=== PATIENT | male | born 1955 | race Two or more races ===

== ENCOUNTER 2016-09-20 09:43 | Day surgery (SDC) | payer BC ==
[~2016-09-20] VITALS: Ht 182.9 cm; Wt 92.1 kg
[2016-09-20] VITALS (7 sets, daily range): BP systolic 125–147; BP diastolic 83–96
[2016-09-20] MEDS ORDERED: NKM (10:18)
[2016-09-20] MEDS ORDERED: LR 1000ml ONE (10:40)
[2016-09-20] MEDS ORDERED: Lidocaine 1% MPF 10mg/ml 5ml ONE (10:40)
[2016-09-20] MEDS ORDERED: Propofol 10mg/ml 20ml IV ONE (10:40)
--- NOTE | 2016-09-20 10:42 | Short Stay Surgery H&P ---
History of Present Illness History of Present Illness Chief Complaint see attached H&P HPI Chaparro Garcia is a 61 year old male who was admitted on for Colon Polyps Patient History Allergies: Coded Allergies: No Known Allergies (Unverified , 09/20/16) PAST MEDICAL HISTORY: Past Surgeries: Social History: Medication History Scheduled No Known Medications* (NKM - No Known Medications*), 0 ., (Reported) Physical Exam Vital Signs Last Vital Signs Date Time Temp Pulse Resp B/P Pulse Ox O2 Delivery O2 Flow Rate FiO2 09/20/16 10:11 98.5 79 18 147/92 97 Room Air Plan Attestation Are the patient's medical conditions optimized for surgery? JOHNY ZHANG Sep 20, 2016 10:42
--- NOTE | 2016-09-20 10:42 | Pre-Procedure Note/Attestation ---
Pre-Procedure Note/Attestation Complete Prior to Procedure Planned Procedure: not applicable Procedure Narrative: colonoscopy Indications for Procedure Pre-Operative Diagnosis: h/o colon polyps Attestation I attest that I discussed the nature of the procedure; its benefits; risks and complications; and alternatives (and the risks and benefits of such alternatives ), prior to the procedure, with the patient (or the patient's legal nutrition representative). I attest that, if there was a reasonable possibility of needing a blood transfusion, the patient (or the patient's legal nutrition representative) was given the [facility] standardized written summary, pursuant to the [place] Blood Safety Act ([place] Health and Safety Code # 1645, as amended). I attest that I re-evaluated the patient just prior to the surgery and that there has been no change in the patient's H&P, except as documented below: JOHNY ZHANG Sep 20, 2016 10:41
--- NOTE | 2016-09-20 11:15 | Immediate Post-Op Evaluation ---
Immediate Post-Op Evalulation Immediate Post-Op Evalulation Procedure: colonoscopy Date of Evaluation: Sep 20, 2016 Time of Evaluation: 11:14 IV Fluids: 500 Blood Pressure Systolic: 126 Blood Pressure Diastolic: 96 Pulse Rate: 77 Respiratory Rate: 14 O2 Sat by Pulse Oximetry: 100 Temperature (Fahrenheit): 97.5 Nausea: No Vomiting: No Patient Status: awake, reacts, patent Hydration Status: adequate Drug: none JASON BLAKE CRNA Sep 20, 2016 11:15
--- NOTE | 2016-09-20 11:17 | Anethesia Preoperative Eval ---
Anesthesia Pre-op PMH/ROS General Date of Evaluation: Sep 20, 2016 Time of Evaluation: 10:40 Anesthesiologist: markus ASA Score: ASA 2 Mallampati Score Class I : Soft palate, uvula, fauces, pillars visible Class II: Soft palate, uvula, fauces visible Class III: Soft palate, base of uvula visible Class IV: Only hard plate visible Mallampati Classification: Class II Surgeon: joaquin Diagnosis: screening Surgical Procedure: Colonoscopy Anesthesia History: none Family History: no anesthesia problems Allergies: Coded Allergies: No Known Allergies (Unverified , 09/20/16) Past Medical History Cardiovascular: Denies: CAD, HTN, [place], arrhythmia, other, valve dz Pulmonary: Denies: COPD, PRIYANKA, asthma, other Gastrointestinal/Genitourinary: Denies: CRI, ESRD, GERD, other Neurologic/Psychiatric: Denies: CVA, TIA, dementia, depression/anxiety, other Endocrine: Denies: DM, hypothyroidism, other, steroids HEENT: Denies: [place] (L), [place] (R), cataract (L), cataract (R), glaucoma, other Hematology/Immune: Denies: DVT, anemia, bleeding disorder, other Musculoskeletal/Integumentary: Denies: DDD, DJD, OA, RA, edema, other PMH Narrative: hx colon ca Anesthesia Pre-op Phys. Exam Physician Exam Last Vital Signs Date Time Temp Pulse Resp B/P Pulse Ox O2 Delivery O2 Flow Rate FiO2 09/20/16 10:11 98.5 79 18 147/92 97 Room Air Constitutional: NAD Neurologic: CN 2-12 intact Cardiovascular: RRR Respiratory: CTA Gastrointestinal: S/NT/ND Airway Exam Mallampati Score: Class I MO: full ROM: full Dentures: no lower, no upper Anesthesia Pre-op A/P Studies Pre-op Studies: EKG - sr Risk Assessment & Plan Plan: mac Status Change Before Surgery: No Pre-Antibiotics Drug: none JASON BLAKE CRNA Sep 20, 2016 11:17
--- NOTE | 2016-09-20 11:20 | 48 Hour Post Anesthesia Eval ---
Post Anesthesia Evaluation Procedure: colonoscopy Date of Evaluation: Sep 20, 2016 Time of Evaluation: 11:19 Blood Pressure Systolic: 125 0: 87 Pulse Rate: 56 Respiratory Rate: 14 O2 Sat by Pulse Oximetry: 100 Airway: patent Nausea: No Vomiting: No Hydration Status: adequate Cardiopulmonary Status: stable Mental Status/LOC: patient returned to baseline Post-Anesthesia Complications: none Follow-up care needed: N/A JASON BLAKE CRNA Sep 20, 2016 11:20
--- NOTE | 2016-09-20 16:02 | Operative Note - Dictated ---
DATE OF OPERATION: 09/20/2016 PROCEDURE: Colonoscopy with biopsy. SURGEON: Modesto Molina M.D. ANESTHESIA: Please see the separate anesthesiologist notes for details. PRE-ENDOSCOPIC DIAGNOSIS: History of colonic polyps. POST-ENDOSCOPIC DIAGNOSES: 1. Diminutive polyp versus fold in the rectum at 15 cm, status post biopsy. 2. Rare early left-sided colonic diverticulosis. PROCEDURE: The procedure, its risks, indications, alternatives, and possible complications including, but not limited to bleeding, infection, perforation, , and anesthesia complications were explained to the patient and informed consent was obtained. The patient was then sedated in the dorsal decubitus position and the rectal exam was done, which showed a normal prostate. The colonoscope was introduced in the rectum and advanced to the terminal ileum. The colonoscope was then gradually withdrawn and the mucosa examined carefully. Examination of terminal ileum and mucosa did not reveal any abnormalities. The colon showed very early rare diverticula in the left colon and only a few were seen. In the rectum at 15 cm, there was one small polyp versus a thickened fold of doubtful significance and this was biopsied. Retroflexed view of the rectum revealed no significant abnormalities. The colonoscope was removed and the patient was sent to recovery in good condition. COMPLICATIONS: None. RECOMMENDATIONS: 1. Follow up biopsy results. 2. High-fiber diet. 3. Outpatient followup. Modesto Molina M.D. DR: ALMA DELIA JOB#: [id number] CC:
== END 2016-09-20 12:45 | disposition home or self-care (01) ==
LOC: GAS 09:43
DX: K62.1 Rectal polyp (principal); K57.30 Diverticulosis of large intestine without perforation or abscess without bleeding; Z86.010 Personal history of colon polyps
CPT/HCPCS: 36415; 45380; 84153; J2704; J7120; 94003; 94150